=== PATIENT | female | born 1985 | race American Indian/Alaskan Native ===

== ENCOUNTER 2020-05-16 15:05 | Emergency (ER) | payer BC ==
[2020-05-16 15:30] LABS: Bilirubin,Urine NEG (Negative); Blood,Urine SM (Negative); Color,Urine Yellow (Yellow); Mucus,Urine 3+ /HPF; Protein,Urine <15 mg/dL mg/dL (Negative); Urobilinogen,Urine < 2.0 mg/dL (<2.0)
[2020-05-16 15:34] LABS: Amphetamine Screen,Urine PRESUMPTIVE NEGATIVE; Benzodiazepines Screen,Urine PRESUMPTIVE NEGATIVE; Cannabinoid Screen,Urine PRESUMPTIVE NEGATIVE; Cocaine Screen,Urine PRESUMPTIVE NEGATIVE; Methadone Screen,Urine PRESUMPTIVE NEGATIVE; Opiate Screen,Urine PRESUMPTIVE NEGATIVE
[2020-05-16] MEDS ORDERED: ZIPRASIDONE MESYLATE 20 MG VIAL IM ONE ×2 (15:41→15:42)
[2020-05-16] MEDS ORDERED: WATER FOR INJ Sterile (PF) 10 ML ONE (15:42)
[2020-05-16 16:12] LABS: Basophils # (Auto) 0.1 K/mm3 (0.0-0.1); Eosinophils # (Auto) 0.1 K/mm3 (0.0-0.4); Eosinophils % (Auto) 1.4 % (0.0-4.3); Hematocrit 42.3 % (30.3-42.9); Hemoglobin 14.1 gm/dl (10.1-14.3); Lymphocytes # (Auto) 1.9 K/mm3 (1.2-5.4); Lymphocytes % (Auto) 31.6 % (13.4-35.0); Mean Corpuscular HGB Conc 34 % (30-34); Mean Corpuscular Volume 95 fl (79-97); Monocytes # (Auto) 0.5 K/mm3 (0.0-0.8); Monocytes % (Auto) 7.6 % (0.0-7.3); Platelet Count 304 K/mm3 (140-440); Red Blood Count 4.45 M/mm3 (3.65-5.03); Red Cell Distribution Width 14.7 % (13.2-15.2)
[2020-05-16 16:27] LABS: Alanine Aminotransferase 13 units/L (7-56); Albumin 4.5 g/dL (3.9-5); Blood Urea Nitrogen 8 mg/dL (7-17); Calcium 10.1 mg/dL (8.4-10.2); Hemolysis Index 5
[2020-05-16 16:31] LABS: BUN/Creatinine Ratio 11
--- NOTE | 2020-05-16 18:37 | Emergency Department Report ---
ED Psych HPI - General Chief Complaint: Medical Clearance Stated Complaint: JADIEL NOE Time Seen by Provider: 05/16/20 15:16 Source: patient, EMS Mode of arrival: Ambulatory Limitations: Altered Mental Status - History of Present Illness Initial Comments: This is a 35-year-old female with history of paranoid schizophrenia who was brought by police for bizarre behavior. Crisis center called police department. 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 According to 1013 filled out by MARY Hameed. Patient had paranoia with delusions. She is denying her family members. She is denying her bottle lives for children. She has not started 5 days. Not breast-feeding 10 days. Poor hygiene. She threatened to cut herself and cut others. Complaint: suicidal ideation, other (Homicidal ideation, paranoia, delusions) -: Gradual, week(s) (2 weeks) Associated Psychiatric Symptoms: suicidal ideation, homicidal ideation, racing thoughts, auditory hallucinations History of same: Yes Quality: constant Improves With: none Worsens With: none Context: not taking psychiatric Associated Symptoms: denies other symptoms Treatments Prior to Arrival: placed on mental he If Self Harm: admits thoughts of, has plan - Related Data Allergies Allergy/AdvReac Type Severity Reaction Status Date / Time No Known Allergies Allergy Unverified 05/16/20 15:31 ED Review of Systems ROS: Stated complaint: JADIEL EVAL Other details as noted in HPI Comment: All other systems reviewed and negative Constitutional: denies: fever, malaise Respiratory: denies: cough Cardiovascular: denies: chest pain Gastrointestinal: denies: abdominal pain ED Past Medical Hx - Past Medical History Previous Medical History?: Yes Additional medical history: Suicidal Ideation paranoid schizophrenia - Surgical History Past Surgical History?: No - Social History Smoking Status: Current Every Day Smoker ED Physical Exam - General Limitations: Altered Mental Status General appearance: alert, other (patient has poor eye contact, responding to internal stimuli) - Head Head exam: Present: atraumatic, normocephalic - Eye Eye exam: Present: normal appearance - ENT ENT exam: Present: mucous membranes moist - Neck Neck exam: Present: normal inspection - Respiratory Respiratory exam: Present: normal lung sounds bilaterally. Absent: respiratory distress, wheezes, rales, rhonchi - Cardiovascular Cardiovascular Exam: Present: regular rate, normal rhythm, normal heart sounds. Absent: systolic murmur, diastolic murmur, rubs, gallop - GI/Abdominal GI/Abdominal exam: Present: soft, normal bowel sounds. Absent: distended, tenderness, guarding, rebound - Extremities Exam Extremities exam: Present: normal inspection - Back Exam Back exam: Present: normal inspection - Neurological Exam Neurological exam: Present: alert, other (oriented to name) - Psychiatric Psychiatric exam: Present: agitated, flat affect, suicidal ideation - Skin Skin exam: Present: warm, dry, intact, normal color. Absent: rash ED Course Vital Signs 05/16/20 05/16/20 05/16/20 15:25 15:33 20:05 Temperature 98.8 F 98.6 F Pulse Rate 104 H 93 H Respiratory 18 18 18 Rate Blood Pressure 134/92 Blood Pressure 108/77 [Left] O2 Sat by Pulse 97 97 99 Oximetry 05/17/20 05/17/20 05/17/20 00:18 09:15 20:00 Temperature 98.1 F 98 F 98.0 F Pulse Rate 93 H 72 90 Respiratory 18 19 18 Rate Blood Pressure Blood Pressure 102/69 115/74 102/79 [Left] O2 Sat by Pulse 99 99 95 Oximetry ED Medical Decision Making - Lab Data Result diagrams: 05/16/20 15:20 05/16/20 15:20 Laboratory Results - last 24 hr 05/16/20 05/16/20 05/16/20 15:10 15:10 15:20 WBC 6.0 RBC 4.45 Hgb 14.1 Hct 42.3 MCV 95 MCH 32 MCHC 34 RDW 14.7 Plt Count 304 Lymph % (Auto) 31.6 Cassia % (Auto) 7.6 H Eos % (Auto) 1.4 Baso % (Auto) 1.0 Lymph # 1.9 Cassia # 0.5 Eos # 0.1 Baso # 0.1 Seg Neutrophils % 58.4 Seg Neutrophils # 3.5 Sodium Potassium Chloride Carbon Dioxide Anion Gap BUN Creatinine Estimated GFR BUN/Creatinine Ratio Glucose Calcium Total Bilirubin AST ALT Alkaline Phosphatase Total Protein Albumin Albumin/Globulin Ratio TSH HCG, Qual Urine Color Yellow Urine Turbidity Slightly-cloudy Urine pH 5.0 Ur Specific Munden 1.023 Urine Protein <15 mg/dl Urine Glucose (UA) Neg Urine Ketones Neg Urine Blood Sm Urine Nitrite Neg Urine Bilirubin Neg Urine Urobilinogen < 2.0 Ur Leukocyte Esterase Lg Urine WBC (Auto) 27.0 H Urine RBC (Auto) 27.0 U Epithel Cells (Auto) 4.0 Urine Mucus 3+ Salicylates Urine Opiates Screen Presumptive negative Urine Methadone Screen Presumptive negative Acetaminophen Ur Barbiturates Screen Presumptive negative Ur Phencyclidine Scrn Presumptive negative Ur Amphetamines Screen Presumptive negative U Benzodiazepines Scrn Presumptive negative Urine Cocaine Screen Presumptive negative U Marijuana (THC) Screen Presumptive negative Drugs of Abuse Note Disclamer Plasma/Serum Alcohol 05/16/20 05/16/20 05/16/20 15:20 15:20 15:20 WBC RBC Hgb Hct MCV MCH MCHC RDW Plt Count Lymph % (Auto) Cassia % (Auto) Eos % (Auto) Baso % (Auto) Lymph # Cassia # Eos # Baso # Seg Neutrophils % Seg Neutrophils # Sodium 137 Potassium 3.7 Chloride 100.9 Carbon Dioxide 21 L Anion Gap 19 BUN 8 Creatinine 0.7 Estimated GFR > 60 BUN/Creatinine Ratio 11 Glucose 104 H Calcium 10.1 Total Bilirubin 0.20 AST 12 ALT 13 Alkaline Phosphatase 53 Total Protein 7.5 Albumin 4.5 Albumin/Globulin Ratio 1.5 TSH 0.994 HCG, Qual Urine Color Urine Turbidity Urine pH Ur Specific Munden Urine Protein Urine Glucose (UA) Urine Ketones Urine Blood Urine Nitrite Urine Bilirubin Urine Urobilinogen Ur Leukocyte Esterase Urine WBC (Auto) Urine RBC (Auto) U Epithel Cells (Auto) Urine Mucus Salicylates < 0.3 L Urine Opiates Screen Urine Methadone Screen Acetaminophen Ur Barbiturates Screen Ur Phencyclidine Scrn Ur Amphetamines Screen U Benzodiazepines Scrn Urine Cocaine Screen U Marijuana (THC) Screen Drugs of Abuse Note Plasma/Serum Alcohol 05/16/20 05/16/20 05/16/20 15:20 15:20 15:20 WBC RBC Hgb Hct MCV MCH MCHC RDW Plt Count Lymph % (Auto) Cassia % (Auto) Eos % (Auto) Baso % (Auto) Lymph # Cassia # Eos # Baso # Seg Neutrophils % Seg Neutrophils # Sodium Potassium Chloride Carbon Dioxide Anion Gap BUN Creatinine Estimated GFR BUN/Creatinine Ratio Glucose Calcium Total Bilirubin AST ALT Alkaline Phosphatase Total Protein Albumin Albumin/Globulin Ratio TSH HCG, Qual Negative Urine Color Urine Turbidity Urine pH Ur Specific Munden Urine Protein Urine Glucose (UA) Urine Ketones Urine Blood Urine Nitrite Urine Bilirubin Urine Urobilinogen Ur Leukocyte Esterase Urine WBC (Auto) Urine RBC (Auto) U Epithel Cells (Auto) Urine Mucus Salicylates Urine Opiates Screen Urine Methadone Screen Acetaminophen 5.0 L Ur Barbiturates Screen Ur Phencyclidine Scrn Ur Amphetamines Screen U Benzodiazepines Scrn Urine Cocaine Screen U Marijuana (THC) Screen Drugs of Abuse Note Plasma/Serum Alcohol < 0.01 - Medical Decision Making Ms. Quintanilla presents with acute psychosis characterized by impulsive behavior, paranoia delusional thought pattern. She is obviously responding to internal stimuli. Due to agitation and unpredictable behavior, chemical restraint with IM ziprasidone given the patient shortly after my initial encounter. Patient is medically clear for psychiatric care. I have reviewed labs CBC chemistry serum toxicology urinalysis UDS. All unremarkable with exception of contaminated urinalysis. I do not suspect UTI. [address] Involuntary hold in place. Patient transferred to [place] Critical care attestation.: If time is entered above; I have spent that time in minutes in the direct care of this critically ill patient, excluding procedure time. ED Disposition Clinical Impression: Acute psychosis, Paranoid schizophrenia, Suicidal ideation, Homicidal ideation Disposition: [id number] PSY HOSP/PSY UNIT Is pt being admited?: No Does the pt Need Aspirin: No Condition: Stable Referrals: PRIMARY CAREMD [Primary Care Provider] - 3-5 Days
[2020-05-17 21:35] VITALS: BP 102/79
== END 2020-05-17 21:35 ==
LOC: ED 15:05
DX: F23 Brief psychotic disorder (principal); R45.851 Suicidal ideations; R45.850 Homicidal ideations; F17.200 Nicotine dependence, unspecified, uncomplicated
CPT/HCPCS: 36415; 80053; 80307; 81001; 84443; 84703; 85025; 87086; 96372; 99285; J3486; 80320; G0480